=== PATIENT | male | born 1985 | race Caucasian/White ===

== ENCOUNTER 2017-10-18 08:11 | Emergency (ER) | payer OTHER ==
[~2017-10-18] VITALS: Ht 172.7 cm; Wt 68.0 kg
[~2017-10-18 08:11] MED LIST: CODACE30; CODACE30 PO; NAPR500 PO; Naprosyn500 MG PO; RXCODACET PO; RXCYCL10 PO; Veetids 500500 MG PO
[2017-10-18 08:51] LABS: BASOPHILS ABSOLUTE AUTO 0.07 K/mm3 (0.00-0.23); BASOPHILS PERCENT AUTO 1 % (0-2); EOSINOPHILS ABSOLUTE AUTO 0.49 K/mm3 (0.00-0.68); EOSINOPHILS PERCENT AUTO 5 % (0-6); Hematocrit 43.2 % (37.0-53.0); Hemoglobin 14.7 g/dL (13.5-17.5); IMMATURE GRAN ABSOLUTE AUTO 0.02 K/mm3 (0.00-0.10); IMMATURE GRAN PERCENT AUTO 0 % (0-1); LYMPHOCYTES PERCENT AUTO 22 % (21-46); MONOCYTES ABSOLUTE AUTO 0.55 K/mm3 (0.16-1.47); MONOCYTES PERCENT AUTO 6 % (4-13); Mean Corpuscular HGB 28.7 pg (26.0-34.0); Mean Corpuscular Volume 84 fL (80-100); Mean Platelet Volume 10.3 fL (9.1-12.4); NEUTROPHILS ABSOLUTE AUTO 6.02 K/mm3 (1.96-9.15); NEUTROPHILS PERCENT AUTO 66 % (41-73); Platelet Count 302 K/mm3 (150-400); RDW Coefficient Variation 12.8 % (11.7-14.2); RDW Standard Deviation 39.6 fL (35.1-46.3); Red Blood Cell Count 5.12 M/mm3 (4.30-5.90); White Blood Cell Count 9.15 K/mm3 (4.00-11.30)
[2017-10-18 09:07] LABS: Alanine Aminotransfer (ALT/SGP 36 U/L (12-78); Albumin, Blood 4.1 g/dL (3.4-5.0); Albumin/Globulin Ratio 1.1 (0.8-1.8); Alk Phos 53 U/L (50-136); Anion Gap 7 mmol/L (6-16); Aspartate Aminotrans (AST/SGOT 24 U/L (12-37); Bilirubin, Total 0.4 mg/dL (0.1-1.0); Blood Urea Nitrogen 21 mg/dL (8-24); CO2, Blood 28 mmol/L (21-32); Calcium, Blood 8.9 mg/dL (8.5-10.1); Chloride, Blood 104 mmol/L (98-108); Creatinine, Blood 1.05 mg/dL (0.60-1.20); Ethanol (Alcohol), Blood, Med <3 mg/dL; Globulin, Blood 3.9 g/dL (2.2-4.0); Glomerular Filtration Rate >60 (60-); Glucose, Blood 85 mg/dL (70-99); Sodium, Blood 139 mmol/L (136-145)
[2017-10-18] MEDS ORDERED: Percocet 5-3251 EACH PO (10:37)
== END 2017-10-18 11:22 | disposition home or self-care (01) ==
LOC: ER 08:11
PROVIDERS: Emergency Medicine
DX: S01.112A Laceration without foreign body of left eyelid and periocular area, initial encounter (principal); S01.81XA Laceration without foreign body of other part of head, initial encounter; S50.312A Abrasion of left elbow, initial encounter; S20.412A Abrasion of left back wall of thorax, initial encounter; S70.212A Abrasion, left hip, initial encounter; S00.31XA Abrasion of nose, initial encounter; F17.200 Nicotine dependence, unspecified, uncomplicated; V23.4XXA Motorcycle driver injured in collision with car, pick-up truck or van in traffic accident, initial encounter
CPT/HCPCS: 36415; 67938; 70450; 70480; 80053; 85025; 96374; 96375; 96376; 99285-25; G0480; J2405; J3010; J7030

== ENCOUNTER → 2019-09-12 | Outpatient (CLI) | payer OTHER ==
[~2019-09-12] MED LIST changes: +Percocet 5-3251 EACH PO
[2019-09-14 10:11] LABS: CHLAMYDIA BY NAA Negative (Negative); GONOCOCCUS BY NAA Negative (Negative); TRICH VAG BY NAA Negative (Negative)
== END ==
LOC: LAB UCHC 15:25 → LAB SHORT 15:25
PROVIDERS: Registered Nurse Community Health
DX: Z11.3 Encounter for screening for infections with a predominantly sexual mode of transmission (principal); Z20.2 Contact with and (suspected) exposure to infections with a predominantly sexual mode of transmission
CPT/HCPCS: 87491; 87591; 87661

== ENCOUNTER 2020-12-26 08:38 | Emergency (ER) | payer OTHER ==
[~2020-12-26] VITALS: Ht 165.1 cm; Wt 79.4 kg
[2020-12-26] MEDS ORDERED: CLIN150 PO (09:40)
== END 2020-12-26 09:47 | disposition home or self-care (01) ==
LOC: ER 08:38
DX: K04.7 Periapical abscess without sinus (principal); F17.200 Nicotine dependence, unspecified, uncomplicated; L03.211 Cellulitis of face
CPT/HCPCS: 99282

== ENCOUNTER 2022-12-08 06:04 | Day surgery (SDC) | payer OTHER ==
[~2022-12-08] VITALS: Ht 165.1 cm; Wt 86.3 kg
[~2022-12-08 06:04] MED LIST changes: +CLIN150 PO; +TERB250 PO
--- NOTE | 2022-12-08 08:12 | NUR ---
12/08/22 0812 Mary Ellen Man PILLOW UNDER HEAD, PILLOW UNDER KNEES, LEFT ARM SECURED ON PADDED ARM BOARD, RIGHT ARM TUCKED.
--- NOTE | 2022-12-08 10:23 | NUR ---
12/08/22 1023 JING GARIBAY PT WOKE UP DISORIENTED
[2022-12-08 10:45] VITALS: BP 150/95
--- NOTE | 2022-12-08 10:47 | NUR ---
12/08/22 1047 JING GARIBAY DRESSING INTACT- CLEAR OF ANY DRAINAGE CDI
== END 2022-12-08 11:45 | disposition home or self-care (01) ==
LOC: ORSCSDS 06:04
PROVIDERS: Otolaryngology
PROC: 099V4ZZ Drainage of Left Ethmoid Sinus, Percutaneous Endoscopic Approach (ICD-10-PCS; principal; 2022-12-08 07:30)
PROC: 099W4ZZ Drainage of Right Sphenoid Sinus, Percutaneous Endoscopic Approach (ICD-10-PCS; principal; 2022-12-08 07:30)
PROC: 099Q4ZZ Drainage of Right Maxillary Sinus, Percutaneous Endoscopic Approach (ICD-10-PCS; principal; 2022-12-08 07:30)
PROC: 099X4ZZ Drainage of Left Sphenoid Sinus, Percutaneous Endoscopic Approach (ICD-10-PCS; principal; 2022-12-08 07:30)
PROC: 099R4ZZ Drainage of Left Maxillary Sinus, Percutaneous Endoscopic Approach (ICD-10-PCS; principal; 2022-12-08 07:30)
PROC: 099T4ZZ Drainage of Left Frontal Sinus, Percutaneous Endoscopic Approach (ICD-10-PCS; principal; 2022-12-08 07:30)
PROC: 099U4ZZ Drainage of Right Ethmoid Sinus, Percutaneous Endoscopic Approach (ICD-10-PCS; principal; 2022-12-08 07:30)
PROC: 099S4ZZ Drainage of Right Frontal Sinus, Percutaneous Endoscopic Approach (ICD-10-PCS; principal; 2022-12-08 07:30)
DX: J32.8 Other chronic sinusitis (principal); J33.9 Nasal polyp, unspecified; J34.2 Deviated nasal septum; R43.0 Anosmia; F17.210 Nicotine dependence, cigarettes, uncomplicated
CPT/HCPCS: 88305; 88311; C2625; J0171; J1100; J1170; J1885; J2250; J2405; J2704; J2765; J3010